=== PATIENT | female | born 1970 | race Caucasian/White ===

== ENCOUNTER → 2018-02-15 | Outpatient (CLI) | payer OTHER ==
[~2018-02-15] MED LIST: AMITRIPTYLINE H25 M2 PO; ANTACID300 MG; AVAPRO; BELSOMRA10 MG PO; CARDIZEM CD120 MG PO; CYMBALTA30 MG PO; DEXILANT60 MG PO; FLEXERIL PO; FLOMAX PO; HYDROCODONE-APA1 TA1 PO; IBUPROFEN 600600 M1 PO; JANUVIA25 MG PO; LEVEMIR SUBQ; LINZESS290 MCG PO; LOVASTATIN 20 M20 MG PO; METFORMIN HCL500 MG PO; NAPROSYN500 MG PO; NEXIUM40 MG PO; NORCO 5-325 TA1 EACH PO; NORVASC5 MG PO; OXYBUTYNIN 5 MG5 M2 PO; REMERON15 MG PO; ROBAXIN500 MG PO; SINGULAIR; TOPROL XL25 MG PO; TRESIBA FL100 UNIT/1 SUBQ; VICTOZA0.6 MG/0.1 SUBQ; XANAX 0.5 MG0.5 MG PO; ZOFRAN ODT4 MG PO
[2018-02-15 08:35] LABS: POTASSIUM 3.5 mmol/L (3.5-5.1)
== END ==
LOC: M.LAB 07:43
PROVIDERS: Anesthesiology
DX: E11.9 Type 2 diabetes mellitus without complications (principal); Z79.899 Other long term (current) drug therapy

== ENCOUNTER → 2018-02-19 | Outpatient (CLI) | payer OTHER | LOC: M.ULTRA 02-10 10:30 | DX: K76.0 Fatty (change of) liver, not elsewhere classified (principal); K80.80 Other cholelithiasis without obstruction; R16.0 Hepatomegaly, not elsewhere classified; R74.8 Abnormal levels of other serum enzymes; I10 Essential (primary) hypertension; G43.909 Migraine, unspecified, not intractable, without status migrainosus ==

== ENCOUNTER → 2018-04-20 | Day surgery (SDC) | payer OTHER ==
[2018-04-20 07:40] LABS: HEMATOCRIT 42.5 % (37.0-47.0); HEMOGLOBIN 14.1 gm/dL (12.0-15.0); MCH 25.7 pg (26.0-34.0); MCHC 33.1 g/dL (28.0-37.0); MCV 77.8 fL (80.0-100.0); MPV 7.4 fl. (7.2-11.1); RBC 5.46 mil/uL (4.20-5.00); RDW-CV 15.4 % (10.5-14.5); WBC 12.2 thou/uL (4.0-11.0)
[2018-04-20 07:57] LABS: CALCIUM 9.4 mg/dL (8.5-10.1); CREATININE 0.6 mg/dL (0.6-1.3); POTASSIUM 3.7 mmol/L (3.5-5.1)
[2018-04-20 08:03] LABS: ALBUMIN 3.7 g/dL (3.4-5.0); TOTAL BILIRUBIN 0.4 mg/dL (<0.1-1.0); TOTAL PROTEIN 8.3 g/dL (6.4-8.2)
--- NOTE | 2018-04-20 11:18 | EKG ---
[place] [address] ELECTROCARDIOGRAM REPORT Name: BILLY ALVAREZ Room: [facility]#: [id number] Admission: 04/20/18 Attend Phys: Lexis Grady DO Discharge: Date of : 70 Report #: [id number] THIS REPORT FOR: //name// [facility] Test Date: 2018-04-20 Test Time: 07:46:41 Pat Name: BILLY ALVAREZ Department: Room: Gender: F Kit Planner: : 1970 Requested By: Lexis Grady Order Number: [id number] Reading MD: Jarrod Ocampo Measurements Intervals [place] Rate: 86 P: 14 WV: 148 QRS: 76 QRSD: 102 T: 51 QT: 399 QTc: 478 Interpretive Statements Sinus rhythm No previous ECG available for comparison Electronically Signed On 04-20-2018 11:18:40 CDT by Jarrod Ocampo [email or web address] <ELECTRONICALLY SIGNED> By: Jarrod Ocampo MD, [facility] 04/20/18 1118 0746 0746 Jarrod Ocampo MD, FACC /EPI
--- NOTE | 2018-04-20 13:42 | OP ---
[address] [address] OPERATIVE REPORT Name: BILLY ALVAREZ Room: [facility]#: [id number] Admission: 04/20/18 Attend Phys: Lexis Grady DO Discharge: Date of : 70 Report #: [id number] THIS REPORT FOR: //name// CC: Lexis Grady Primary Care Doctor Yaritza Darby DICTATED BY: Benjamin Adkins DO DATE OF SERVICE: 04/20/2018 PREOPERATIVE DIAGNOSIS: Gallstones. POSTOPERATIVE DIAGNOSIS: Chronic cholecystitis with cholelithiasis. FINDINGS: A hugely distended gallbladder with multiple large gallstones and the triangle of Calot was severely scarred down. SURGEON: Lexis Grady DO AIRFRAME AND POWERPLANT MECHANIC: eJremiah Adkins, PGY4. SECOND CHIEF INVESTMENT OFFICER: Wilber Jimenez, PGY-2. OPERATION PERFORMED: Laparoscopic cholecystectomy. ANESTHESIA: General and local. ESTIMATED BLOOD LOSS: 5 mL. SPECIMENS REMOVED: Gallbladder and contents. COMPLICATIONS: None. COMMENTS: The patient will be allowed to further recover in the PACU and depending on how she progresses, she could possibly go home today, but the patient does have muscular dystrophy, so we will continue to monitor closely. HISTORY OF PRESENT ILLNESS: The patient is a very pleasant 47-year-old female who presented to our office with complaints of right upper quadrant intermittent abdominal pain. She states this pain has been ongoing for the past 2 years and usually occurs every 1-2 weeks. She had multiple ultrasounds performed and showed the patient did have multiple gallstones in her gallbladder. It was recommended she have a laparoscopic cholecystectomy. A complete description of this procedure was reviewed in detail with the patient and she was given the risks, benefits, complications during her office visit as well. These risks, [place] [address] OPERATIVE REPORT Name: ANTONIOBILLY [id number] Admission: 04/20/18 Attend Phys: Lexis Grady DO Discharge: Date of : 70 Report #: [id number] benefits, complications include but are not limited to infection, bleeding, hernias and chronic pain or numbness at incision sites, injury to surrounding structures such as common bile duct, stomach, duodenum and any surrounding arteries, possible anesthesia complications, possible bile leak, possible need for an open procedure, and other common complications associated with this procedure. The patient voiced complete understanding and wished to proceed. DESCRIPTION OF PROCEDURE: After the appropriate consents were obtained, the patient was taken to the operating room, laid in a supine position. She had SCDs placed on her bilateral lower extremities and a safety strap placed across her lap. We did place a footboard at the end of the bed and secured it tightly. All lines were placed by Anesthesia. The patient was then sedated and intubated by Anesthesia. They did use a GlideScope to intubate the patient and it was successful. We then exposed her abdomen. We tucked her right arm at her side, left her left arm out. The patient's abdomen was then prepped and draped in a normal sterile fashion. A timeout was performed to correctly identify the patient and procedure. We gave the patient 900 mg of clindamycin preoperatively as she was allergic to PENICILLIN. We then injected 0.5% Marcaine at the supraumbilical incision site to anesthetize the region. We then used a 11 blade scalpel to make our incision. We dissected down through the subcutaneous tissue until we encountered the anterior abdominal wall fascia. The fascia was grasped between 2 Marco Antonio clamps and was incised. We entered the patient's abdominal cavity bluntly using a hemostat. Using a finger, we were able to sweep in the intra-abdominal cavity to ensure there were no jaret-incisional adhesions and none were present. We then placed 2 stay sutures on either side of the fascia using 0 Vicryl. We then introduced our Ana trocar into the patient's abdomen and secured this trocar with these previously placed 0 Vicryl sutures. The patient's abdomen was then insufflated to 15 mmHg and we introduced a 10 mm 0 degree scope. Initially, we did notice that the patient had a severely distended gallbladder that was apparent in the right upper quadrant. There were no other obvious abnormalities that were seen in the anterior abdominal organs. We then placed our subxiphoid port after we placed the patient in a head up and left side down position. The subxiphoid port was a 11 mm trocar, which was placed under direct visualization. We were able to grasp the gallbladder and elevate it cephalad and then we placed our two right-sided lateral abdominal ports under direct visualization. We then grasped the gallbladder and retracted anteriorly and cephalad until we were able to visualize Fernando's pouch. Fernando's pouch was then grasped and retracted medially and the peritoneum overlying the gallbladder was incised using electrocautery. We dissected along the lateral aspect of the gallbladder initially and continued this medially until we identified our cystic duct. Cystic duct was just inferior to the Fernando's pouch and appeared to be rather scarred in. Using blunt dissection, we were able to dissect out the cystic duct and after dissecting this out thoroughly, we did notice that there was a large artery coursing posteriorly to it and inferior to the gallbladder. We assume this is likely a right hepatic artery, so we dissected around it very carefully [address] [address] OPERATIVE REPORT Name: BILLY ALVAREZ [facility] [id number] Admission: 04/20/18 Attend Phys: Lexis Grady DO Discharge: Date of : 70 Report #: [id number] and there was a small branch coming off it medially and going directly into the gallbladder. We then cleaned off her duct and even more and we were able to visualize our critical view. The critical view was obtained by identifying 2 and only 2 structures going directly into the gallbladder. It was at this time that we clipped our duct and our artery. Two clips were placed proximally and one distally on the duct and 2 clips were placed proximally and one distally on the artery. Both of these were incised using laparoscopic scissors. There was obvious lumen to both the duct and the artery and there was no oozing or bleeding from either of them. We did dissect the gallbladder off this right hepatic artery further using blunt dissection to ensure it is well away from our dissection plane. Using electrocautery, we removed the gallbladder from the liver bed, which was intrahepatic in portions of it and was significantly large. There was a small amount of bile that leaked from the gallbladder, but this was suctioned away until the fluid was clean. Once we removed the gallbladder from the liver bed, it was placed within the EndoCatch pouch. We reinspected our clips as well as the liver bed and any bleeding that was occurring was adequately controlled using electrocautery. Our clips appeared to be in place and intact and there was no bleeding or oozing from the cystic duct or the cystic artery. The right hepatic artery, which was coursing just lateral to our cystic artery was intact and it was not bleeding. Any free fluid was suctioned away and we irrigated thoroughly to ensure that the fluid was clear when suctioning. The patient was allowed to return in neutral position and we suctioned away any free fluid from Morison's pouch. The patient's liver was allowed to return to the normal anatomical position and we removed our trocars under direct visualization. The patient's gallbladder was then removed from the supraumbilical incision site, which we had to extend the fascial incision to remove the gallbladder secondary to the large gallbladder and very large gallstones. Once this was removed, it was passed off as specimen. Then, using our previously placed 0 Vicryl sutures, we were able to elevate the fascia and grasp between 2 Marco Antonio clamps. The fascia was then reapproximated using 0 Vicryl sutures in a ksuipi-hy-xjofd fashion. We placed two separate jifhcq-bd-jfugo sutures to adequately reapproximate the fascia. We did place the finger within the intra-abdominal cavity before tying this down to assure there were no structures that had stuck up between our fascial incision and none were. We injected the fascia using 0.5% Marcaine. We closed the subcutaneous tissue using a 3-0 Vicryl suture in an inverted interrupted fashion. We closed the skin using a 4-0 Monocryl suture in a running inverted subcuticular fashion. We closed the remaining port sites using a 4-0 Vicryl in an inverted interrupted fashion. We injected the remaining port sites using 0.5% Marcaine for local anesthesia. We cleaned the port sites adequately and placed Mastisol, Steri-Strips, gauze and a sterile Tegaderm and OpSite over each of them. The patient was allowed to awaken in the operating room and will be subsequently extubated and transferred to the PACU. All counts were correct x 2 [place] [address] OPERATIVE REPORT Name: BILLY ALVAREZ Room: [facility]#: [id number] Admission: 04/20/18 Attend Phys: Lexis Grady DO Discharge: Date of : 70 Report #: [id number] of this procedure[address] Dr. Grady was present and scrubbed for the entirety of this procedure. <ELECTRONICALLY SIGNED> By: Lexis Grady DO 04/20/18 1342 1056 1154Cerica Grady DO /nt
--- NOTE | 2018-04-24 09:07 | PATH ---
[address] [address] PATHOLOGY RPT PROCEDURE Name: BILLY ALVAREZ Room: [facility]#: [id number] Admission: 04/20/18 Date of : 70 Discharge: Report #: [id number] Path Case #: [id number] [facility] Accession Number: [id number] . 01 Material submitted: . GALLBLADDER AND CONTENTS . 01 Clinical history: . Gallstones . 02 Diagnosis: Gallbladder and contents: - Chronic cholecystitis and cholelithiasis. (CHARLES:pit 04/22/2018) QTP/04/22/2018 . 02 Electronically signed: . Marcelino Cox MD, Pathologist NPI- [id number] . 01 Gross description: . The specimen is received in formalin, labeled "Billy Silvano, gallbladder and contents". Received is a previously punctured gallbladder measuring 9.0 x 4.1 x 3.0 cm in greatest dimensions displaying bile-stained serosal surfaces. Opening the gallbladder reveals a velvety, bile-stained mucosa with a gallbladder wall thickness of 0.1 cm. Calculi are present displaying a bright yellow and multifaceted appearance, and no masses or lesions are noted grossly. Warp Scouring Vat Tender sections, to include the proximal margin, are submitted in cassette A1. (CAA; 04/21/2018) QAC/QAC . 02 Pathologist provided ICD-10: K80.10 . 02 CPT . 545222 Specimen Comment: A courtesy copy of this report has been sent to Specimen Comment: [phone], . Specimen Comment: Report sent to / DR GONGORA Performed at: 01 [facility] [address], [place], [place] [id number] MD Cal Tidwell MD Phone: [phone] Performed at: [address] [address] [address] [place], [place] [id number] MD Marcelino Cox MD Phone: [phone]
== END | disposition home or self-care (01) ==
LOC: M.SUR 07:17
PROVIDERS: Surgery
DX: K80.10 Calculus of gallbladder with chronic cholecystitis without obstruction (principal); Z88.0 Allergy status to penicillin